=== PATIENT | female | born 1935 | race Caucasian/White ===

== ENCOUNTER 2019-01-15 08:38 | Day surgery (SDC) | payer MEDICARE, OTHER ==
[2019-01-15] MEDS: SOD CHLORIDE 0.9% 1,000 ML IV (08:30)
[2019-01-15] MEDS: DICLOFENAC 0.1% 2.5 ML OPH OPER (09:54)
[2019-01-15] MEDS: CYCLOPENTOLATE/PHENYLEPH 2 ML OPH OPER (09:54)
[2019-01-15] MEDS: MOXIFLOXACIN 0.5% 3 ML OPH OPER (09:54)
[2019-01-15] MEDS: TROPICAMIDE 1% 15 ML OPH OPER (09:54)
[2019-01-15] MEDS ORDERED: EPINEPHrine 1 MG INJ (10:20)
[2019-01-15] MEDS ORDERED: LIDOCAINE 100 MG SYRINGE (10:40)
[2019-01-15] MEDS ORDERED: PROPOFOL 20 ML (10:40)
[2019-01-15] MEDS: CARBACHOL 0.01% 1.5 ML OPH INJ (10:58)
[2019-01-15] MEDS: DEXAMETHASONE 4 MG/ML 1 ML INJ (10:59)
[2019-01-15] MEDS: CEFAZOLIN 1 GM INJ (10:59)
[2019-01-15] MEDS: GENTAMICIN 80 MG INJ (11:00)
[2019-01-15] MEDS: LIDOCAINE 4% (MPF) 5 ML INJ (11:00)
[2019-01-15] MEDS ORDERED: FENTAnyl 50 MCG/ML VIAL (11:00)
[2019-01-15] MEDS: TETRACAINE 0.5% 4 ML OPH (11:00)
[2019-01-15] MEDS: NA HYALURONATE/CHONDROITIN 0.5 ML SYG (11:00)
== END 2019-01-15 12:50 | disposition home or self-care (01) ==
LOC: SDS 08:38
DX: H25.11 Age-related nuclear cataract, right eye (principal); E11.9 Type 2 diabetes mellitus without complications; I10 Essential (primary) hypertension; E78.00 Pure hypercholesterolemia, unspecified; Z79.82 Long term (current) use of aspirin; Z79.84 Long term (current) use of oral hypoglycemic drugs
CPT/HCPCS: 66984; 82962